=== PATIENT | female | born 2000 | race Caucasian/White ===

== ENCOUNTER 2022-06-30 18:09 | Emergency (ER) | payer BC, SELFPAY ==
[2022-06-30 18:45] VITALS: BP 154/103; PULSE 112; RESP 18; TEMP 36.8; O2SAT 99; BMI 27.4
== END 2022-07-01 00:16 | disposition left against medical advice (07) ==
PROVIDERS: Emergency Provider Emergency Medicine
DX: S61.552A Open bite of left wrist, initial encounter (principal); W54.0XXA Bitten by dog, initial encounter; Y93.9 Activity, unspecified; Y92.9 Unspecified place or not applicable; Y99.9 Unspecified external cause status
CPT/HCPCS: 99281